=== PATIENT | male | born 1985 | race Caucasian/White ===

== ENCOUNTER 2022-10-22 20:35 | Emergency (ER) | payer OTHER ==
[2022-10-22] MEDS ORDERED: methylPREDNISolone NA SUCC 125 MG/2 ML VIAL IVPUSH ONE (20:50)
[2022-10-22] MEDS ORDERED: SODIUM CHLORIDE 1,000 ML IV ONE (20:50)
[2022-10-22] MEDS ORDERED: methylPREDNISolone NA SUCC 125 MG/2 ML VIAL ONE (20:51)
[2022-10-22 20:56] VITALS: RESP 16; BMI 32.5
[2022-10-22] MEDS ORDERED: FAMOTIDINE 20 MG/50 ML IVPB 20 MG/50 ML MG IVPB ONE ×2 (21:01→21:02)
[2022-10-23 00:19] VITALS: BP 130/90; PULSE 70; TEMP 99
== END 2022-10-23 00:19 | disposition home or self-care (01) ==
LOC: FER 20:35
PROC: 3E033GC Introduction of Other Therapeutic Substance into Peripheral Vein, Percutaneous Approach (ICD-10-PCS; principal; 2022-10-22)
DX: T78.40XA Allergy, unspecified, initial encounter (principal)
CPT/HCPCS: 99284-25